=== PATIENT | female | born 1990 | race Caucasian/White ===

== ENCOUNTER 2018-08-10 21:13 | Emergency (ER) | payer OTHER ==
[2018-08-10 21:18] VITALS: TEMP 98; BMI 26.7
--- NOTE | 2018-08-10 22:05 | PDOC ---
History of Present Illness - General History Source: Patient Exam Limitations: No Limitations - History of Present Illness Initial Comments: 08/10/18 22:50 The patient is a 27-year-old female with past medical history significant for eczema and seasonal allergies present to the emergency department with chest tightness for the past 3 days. The patient reports a history of intermittent chest tightness for months, with occasional episodes. The patient reports for the past 3 days, shes been having frequent sporadic episodes with duration ranging from 30 minutes to 3 hours. The patient reports the tightness is diffused across the anterior chest wall, with occasional episodes to the epigastric region. The patient denies any modifying factors that improve or aggravates the symptoms. The patient states todays episode last longer than the prior episode, accompanied with palpitations, wanted to be evaluated. The patient reports following up at the urgent care, where she had an EKG done. The patient states she was informed that the EKG was normal but secondary to the Depo Provera use, she was referred to the ED for possible PE evaluation. The patient states she has shortness of breath with ambulation up the stairs, gale SOB with walking. The patient reports she is eating and drinking normally. Denies shortness of breath, headache, fever, chills, coughing, pain, congestion , leg swelling. Gale history of clots. The patient reports a recent weight gain , states its secondary to lack of exercise. Allergies: NKA Social history: No past or present tobacco, alcohol or recreational drug use. Surgical history: None reported Medication: Depo Provera use for the past 3 months. PCP: None reported <Marion Alvarado - Last Filed: 08/10/18 23:22> <Gabby Wyatt - Last Filed: 08/10/18 23:47> - General Chief Complaint: Shortness of Breath Stated Complaint: CHEST PRESSURE Time Seen by Provider: 08/10/18 21:28 Past History <Marion Alvarado - Last Filed: 08/10/18 23:22> - Past Medical History COPD: No - Suicide/Smoking/Psychosocial Hx Smoking History: Never smoked Number of Cigarettes Smoked Daily: 0 Hx Alcohol Use: No <Gabby Wyatt - Last Filed: 08/10/18 23:47> - Past Medical History Allergies/Adverse Reactions: Allergies Allergy/AdvReac Type Severity Reaction Status Date / Time No Known Allergies Allergy Verified 08/10/18 21:19 Home Medications: Ambulatory Orders No Home Medications 0 dose .ROUTE UTDICT 04/07/14 Review of Systems - Review of Systems Able to Perform ROS?: Yes Comments:: 08/10/18 22:51 GENERAL/CONSTITUTIONAL: No fever or chills. No weakness. HEAD, EYES, EARS, NOSE AND THROAT: No change in vision. No ear pain or discharge. No sore throat. CARDIOVASCULAR: (+) Chest tightness, palpitation. (+) Shortness of breath with walking up stairs. No chest pain or shortness of breath. RESPIRATORY: No cough, wheezing, or hemoptysis. GASTROINTESTINAL: No nausea, vomiting, diarrhea or constipation. GENITOURINARY: No dysuria, frequency, or change in urination. MUSCULOSKELETAL: No joint or muscle swelling or pain. No neck or back pain. SKIN: No rash NEUROLOGIC: No headache, vertigo, loss of consciousness, or change in strength/ sensation. ENDOCRINE: No increased thirst. No abnormal weight change. HEMATOLOGIC/LYMPHATIC: No anemia, easy bleeding, or history of blood clots. ALLERGIC/IMMUNOLOGIC: No hives or skin allergy. <Marion Alvarado - Last Filed: 08/10/18 23:22> *Physical Exam - Vital Signs Last Vital Signs Temp Pulse Resp BP Pulse Ox 98 F 88 18 145/91 99 08/10/18 21:15 08/10/18 21:15 08/10/18 21:15 08/10/18 21:15 08/10/18 21:15 - Physical Exam Comments: 08/10/18 23:22 GENERAL: Awake, alert, and fully oriented, in no acute distress HEAD: No signs of trauma EYES: PERRLA, EOMI, sclera anicteric, conjunctiva clear ENT: Auricles normal inspection, hearing grossly normal, nares patent, oropharynx clear without exudates. (+) dry mucous membranes. NECK: Normal ROM, supple, no lymphadenopathy, JVD, or masses LUNGS: Breath sounds equal, clear to auscultation bilaterally. No wheezes, and no crackles HEART: Regular rate and rhythm, normal S1 and S2, no murmurs, rubs or gallops ABDOMEN: Soft, nontender, normoactive bowel sounds. No guarding, no rebound. No masses EXTREMITIES: Normal range of motion, no edema. No clubbing or cyanosis. No cords, erythema, or tenderness NEUROLOGICAL: Cranial nerves II through XII grossly intact. Normal speech, normal gait SKIN: Warm, Dry, normal turgor, no rashes or lesions noted. <Marion Alvarado - Last Filed: 08/10/18 23:22> - Vital Signs Last Vital Signs Temp Pulse Resp BP Pulse Ox 98 F 88 18 145/91 99 08/10/18 21:15 08/10/18 21:15 08/10/18 21:15 08/10/18 21:15 08/10/18 21:15 <Gabby Wyatt - Last Filed: 08/10/18 23:47> ED Treatment Course - LABORATORY CBC & Chemistry Diagram: 08/10/18 22:35 08/10/18 22:35 <Marion Alvarado - Last Filed: 08/10/18 23:22> - LABORATORY CBC & Chemistry Diagram: 08/10/18 22:35 08/10/18 22:35 <Gabby Wyatt - Last Filed: 08/10/18 23:47> Medical Decision Making - Medical Decision Making Pt with SOB for a year, has been bothering her daily for the past 3 days, currently asymptomatic. Low risk for PE by clinical eval, D-dimer negative. CE also negative. Exam wnl. Stable for DC home. <Gabby Wyatt - Last Filed: 08/10/18 23:47> *DC/Admit/Observation/Transfer - Attestations Scribe Attestion: 08/10/18 23:23 Documentation prepared by Marion Alvarado, acting as biomedical scientist for Gabby Wyatt MD. <Marion Alvarado - Last Filed: 08/10/18 23:22> - Discharge Dispostion Decision to Admit order: No <Gabby Wyatt - Last Filed: 08/10/18 23:47> Diagnosis at time of Disposition: Shortness of breath - Discharge Dispostion Disposition: HOME Condition at time of disposition: Stable - Referrals Referrals: Víctor Guerrero MD [Staff Physician] - - Patient Instructions Printed Discharge Instructions: DI for Shortness of Breath
[2018-08-10] MEDS ORDERED: SODIUM CHLORIDE 1,000 ML IV STA (22:06)
[2018-08-10 22:45] LABS: BASO % 0.9 % (0-2.0); EOS % 1.7 % (0-4.5); HEMATOCRIT 38.7 % (32.4-45.2); HEMOGLOBIN 12.9 GM/dL (10.7-15.3); LYMPH % 39.4 % (8-40); MCH 27.6 pg (25.7-33.7); MCHC 33.2 g/dl (32.0-36.0); MEAN PLT VOLUME 7.3 fl (7.5-11.1); MONO % 9.1 % (3.8-10.2); NEUT % 48.9 % (42.8-82.8); PLATELET COUNT 276 K/MM3 (134-434); RBC 4.66 M/mm3 (3.60-5.2); RDW 13.2 % (11.6-15.6); WHITE BLOOD COUNT 6.2 K/mm3 (4.0-10.0)
[2018-08-10 23:18] LABS: ALBUMIN 3.8 g/dl (3.4-5.0); ALK PHOS 54 U/L (45-117); ANION GAP 8 MMOL/L (8-16); BILIRUBIN,TOTAL 0.3 mg/dL (0.2-1); BLOOD UREA NITROGEN 10 mg/dL (7-18); CALCIUM 8.7 mg/dL (8.5-10.1); CHLORIDE 106 mmol/L (98-107); CO2 25 mmol/L (21-32); CREATININE 0.7 mg/dL (0.55-1.3); GLUCOSE,RANDOM 106 mg/dL (74-106); POTASSIUM 3.9 mmol/L (3.5-5.1); SGOT/AST 15 U/L (15-37); SGPT/ALT 15 U/L (13-61); SODIUM 139 mmol/L (136-145); TOT PROT 7.3 g/dl (6.4-8.2)
[2018-08-10 23:39] VITALS: BP 138/84; PULSE 83
--- NOTE | 2018-08-11 15:34 | EKG ---
Test Reason : Blood Pressure : / mmHG Vent. Rate : 071 BPM Atrial Rate : 071 BPM P-R Int : 128 ms QRS Dur : 092 ms QT Int : 396 ms P-R-T Axes : 053 018 080 degrees QTc Int : 430 ms NORMAL SINUS RHYTHM INCOMPLETE RIGHT BUNDLE BRANCH BLOCK NONSPECIFIC T WAVE ABNORMALITY ABNORMAL ECG NO PREVIOUS ECGS AVAILABLE Confirmed by MD Nba, Jayy ([id number]) on 08/11/2018 3:33:59 PM Referred By: Confirmed By:Jayy Arango MD
== END 2018-08-10 23:47 | disposition home or self-care (01) ==
LOC: JER 21:13
PROC: 3E0337Z Introduction of Electrolytic and Water Balance Substance into Peripheral Vein, Percutaneous Approach (ICD-10-PCS; principal; 2018-08-10)
DX: R06.02 Shortness of breath (principal)
CPT/HCPCS: 36415; 80053; 82550; 84443; 84484; 84703; 85025; 85379; 93005; 93010; 99284-25; J7030

== ENCOUNTER 2018-08-16 14:35 | Emergency (ER) | payer OTHER ==
[2018-08-16 14:48] VITALS: BMI 26.7
--- NOTE | 2018-08-16 16:42 | PDOC ---
History of Present Illness - General Chief Complaint: Chest Pain Stated Complaint: SEND BY PCP Time Seen by Provider: 08/16/18 15:45 History Source: Patient Exam Limitations: No Limitations - History of Present Illness Initial Comments: 08/16/18 16:47 27-year-old female with no past medical history presents to ED with complaints of intermittent midsternal chest dullness above the epigastric region of the past week and a half without shortness of breath, palpitations, dizziness, weakness, sweating, or back pain. Patient states pain comes and goes lasting only minutes and has no associated symptoms. Patient denies aggravating factors or alleviating factors patient was seen here about one week ago and was told to follow up with the PCP whom she saw today and sent back to the ER for further workup including to rule out PE. Presenting Symptoms: Chest Pain Timing/Duration: reports: intermittent Severity/Quality: reports: mild, dull Location: reports: substernal (mid) Chest Pain Radiation: reports: no radiation Activities at Onset: reports: none Prior Chest Pain/Cardiac Workup: reports: No prior chest pain Modifying Factors: improves with: other (none) Nitro Today/Relief: Yes: no nitro taken today Aspirin Received prior to arrival (Core Measure): Yes: no aspirin today Beta Taryn indicated at this time? (Core Measure): No Associated Symptoms: Yes: Chest Pain/pressure (sternal dullness) Past History - Travel Traveled outside of the country in the last 30 days: No - Past Medical History Allergies/Adverse Reactions: Allergies Allergy/AdvReac Type Severity Reaction Status Date / Time No Known Allergies Allergy Verified 08/16/18 14:43 Home Medications: Ambulatory Orders No Home Medications 0 dose .ROUTE UTDICT 04/07/14 COPD: No DVT: No Dementia: No - Suicide/Smoking/Psychosocial Hx Smoking History: Never smoked Number of Cigarettes Smoked Daily: 0 Information on smoking cessation initiated: No Hx Alcohol Use: No Drug/Substance Use Hx: No Substance Use Type: None Patient Lives Alone: No Lives with/in: parents Review of Systems - Review of Systems Able to Perform ROS?: Yes Constitutional: No: Symptoms Reported HEENTM: No: Symptoms Reported Respiratory: No: Symptoms reported Cardiac (ROS): Yes: Chest Pain ABD/GI: No: Symptoms Reported : No: Symptoms Reported Musculoskeletal: No: Symptoms Reported Integumentary: No: Symptoms Reported Neurological: No: Symptoms reported Psychiatric: No: Anxiety, Stressors Endocrine: No: Symptoms Reported Hematologic/Lymphatic: No: Symptoms Reported *Physical Exam - Vital Signs Last Vital Signs Temp Pulse Resp BP Pulse Ox 99.1 F 75 18 122/80 99 08/16/18 14:45 08/16/18 14:45 08/16/18 14:45 08/16/18 14:45 08/16/18 14:45 - Physical Exam General Appearance: Yes: Nourished, Appropriately Dressed. No: Apparent Distress HEENT: positive: Pharynx Normal. negative: Pale Conjunctivae Neck: positive: Normal Thyroid, Supple Respiratory/Chest: positive: Lungs Clear, Normal Breath Sounds. negative: Chest Tender, Respiratory Distress, Accessory Muscle Use Cardiovascular: positive: Regular Rhythm, Regular Rate. negative: Murmur Gastrointestinal/Abdominal: positive: Soft. negative: Tenderness Extremity: positive: Normal Capillary Refill. negative: Pedal Edema Integumentary: positive: Normal Color, Warm, Moist Neurologic: positive: Motor Strength 5/5 (ambulatory). negative: Normal Mood/ Affect (flat affect) Heart Score/ECG Review - ECG Intrepretation Rhythm: Regular Rhythm (nsr at 67. No st elevation/ depression/ and intervals are regular) ED Treatment Course - LABORATORY CBC & Chemistry Diagram: 08/16/18 16:30 08/16/18 16:30 - ADDITIONAL ORDERS Additional order review: Laboratory Results 08/16/18 08/16/18 08/16/18 16:30 16:30 16:30 D-Dimer < 214 Sodium 138 Potassium 3.6 Chloride 105 Carbon Dioxide 25 Anion Gap 8 BUN 12 Creatinine 0.6 Creat Clearance w eGFR > 60 Random Glucose 102 Calcium 8.7 Magnesium 2.0 Total Bilirubin 0.4 AST 17 ALT 15 Alkaline Phosphatase 57 Creatine Kinase 78 Troponin I < 0.02 Total Protein 7.4 Albumin 3.8 TSH Resin T3 Uptake Urine Color Straw Urine Appearance Clear Urine pH 6.0 Ur Specific Leo 1.006 Urine Protein Negative Urine Glucose (UA) Negative Urine Ketones Negative Urine Blood Negative Urine Nitrite Negative Urine Bilirubin Negative Urine Urobilinogen Negative Ur Leukocyte Esterase Negative Urine HCG, Qual Negative 08/16/18 16:30 D-Dimer Sodium Potassium Chloride Carbon Dioxide Anion Gap BUN Creatinine Creat Clearance w eGFR Random Glucose Calcium Magnesium Total Bilirubin AST ALT Alkaline Phosphatase Creatine Kinase Troponin I Total Protein Albumin TSH 2.02 Resin T3 Uptake 32.6 Urine Color Urine Appearance Urine pH Ur Specific Leo Urine Protein Urine Glucose (UA) Urine Ketones Urine Blood Urine Nitrite Urine Bilirubin Urine Urobilinogen Ur Leukocyte Esterase Urine HCG, Qual 08/16/18 16:30 RBC 4.74 MCV 82.1 MCHC 33.2 RDW 13.3 MPV 7.3 L Neutrophils % 68.9 D Lymphocytes % 21.7 D Monocytes % 7.1 Eosinophils % 1.5 Basophils % 0.8 - RADIOLOGY Radiology Studies Ordered: Category Date Time Status CHEST PA & LAT [RAD] Stat Radiology 08/16/18 16:12 Taken Medical Decision Making - Medical Decision Making 08/16/18 16:47 Patient with complaints of intermittent lower midsternal chest dullness for the past week and a half without alleviating or aggravating factors. Patient was here last week had a workup including d-dimer and had a noted TSH of 3.8. Patient was seen by her PCP today who recommended further workup including additional labs and imaging. I have ordered labs, EKG, chest x-ray urine along with a d-dimer and T4 T3 and TSH level. Patient was unable to be ruled out utilizing the PERC rule since she is currently has a depo implant 08/16/18 17:50 Laboratory Tests 08/16/18 08/16/18 08/16/18 16:30 16:30 16:30 WBC 7.1 Hgb 12.9 Hct 39.0 Absolute Neuts (auto) 4.9 D-Dimer Sodium Potassium Chloride Carbon Dioxide Anion Gap BUN Creatinine Random Glucose Calcium Magnesium Total Bilirubin AST ALT Alkaline Phosphatase Creatine Kinase Troponin I TSH 2.02 Resin T3 Uptake 32.6 Urine Ketones Negative Urine Nitrite Negative Ur Leukocyte Esterase Negative Urine HCG, Qual Negative 08/16/18 08/16/18 16:30 16:30 WBC Hgb Hct Absolute Neuts (auto) D-Dimer < 214 Sodium 138 Potassium 3.6 Chloride 105 Carbon Dioxide 25 Anion Gap 8 BUN 12 Creatinine 0.6 Random Glucose 102 Calcium 8.7 Magnesium 2.0 Total Bilirubin 0.4 AST 17 ALT 15 Alkaline Phosphatase 57 Creatine Kinase 78 Troponin I < 0.02 TSH Resin T3 Uptake Urine Ketones Urine Nitrite Ur Leukocyte Esterase Urine HCG, Qual 08/16/18 18:52 Chest x-ray essentially negative. Call placed to Dr. Androni to discuss the case *DC/Admit/Observation/Transfer Diagnosis at time of Disposition: Chest pain, midsternal - Discharge Dispostion Disposition: HOME Condition at time of disposition: Good - Referrals Referrals: Danika Honeycutt [Primary Care Provider] - - Patient Instructions Printed Discharge Instructions: DI for Atypical Chest Pain Additional Instructions: At this time your labs, imaging, and EKG were negative. Please bring copy of your results with you to your primary care physician whom I spoke with today in regards to your visit. - Post Discharge Activity
[2018-08-16 16:47] LABS: BASO % 0.8 % (0-2.0); EOS % 1.5 % (0-4.5); HEMOGLOBIN 12.9 GM/dL (10.7-15.3); LYMPH % 21.7 % (8-40); MCH 27.3 pg (25.7-33.7); MCHC 33.2 g/dl (32.0-36.0); MEAN CELL VOLUME 82.1 fl (80-96); MEAN PLT VOLUME 7.3 fl (7.5-11.1); MONO % 7.1 % (3.8-10.2); NEUT % 68.9 % (42.8-82.8); PLATELET COUNT 268 K/MM3 (134-434); RBC 4.74 M/mm3 (3.60-5.2); RDW 13.3 % (11.6-15.6); WHITE BLOOD COUNT 7.1 K/mm3 (4.0-10.0)
[2018-08-16 16:59] LABS: URINE APPEARANCE CLEAR; URINE BILIRUBIN NEGATIVE (<2.0 mg/dL); URINE COLOR STRAW; URINE GLUCOSE (UA) NEGATIVE (NEGATIVE); URINE KETONE NEGATIVE (NEGATIVE); URINE LEUK ESTERASE NEGATIVE (NEGATIVE); URINE NITRITE NEGATIVE (NEGATIVE); URINE PROTEIN NEGATIVE (NEGATIVE); URINE UROBILINOGEN NEGATIVE mg/dL (0.2-1.0)
[2018-08-16 17:03] LABS: HCG,QUALITATIVE URINE Negative
[2018-08-16 17:23] LABS: ALBUMIN 3.8 g/dl (3.4-5.0); ALK PHOS 57 U/L (45-117); ANION GAP 8 MMOL/L (8-16); BILIRUBIN,TOTAL 0.4 mg/dL (0.2-1); BLOOD UREA NITROGEN 12 mg/dL (7-18); CALCIUM 8.7 mg/dL (8.5-10.1); CHLORIDE 105 mmol/L (98-107); CO2 25 mmol/L (21-32); CREATININE 0.6 mg/dL (0.55-1.3); GLUCOSE,RANDOM 102 mg/dL (74-106); POTASSIUM 3.6 mmol/L (3.5-5.1); SGOT/AST 17 U/L (15-37); SGPT/ALT 15 U/L (13-61); SODIUM 138 mmol/L (136-145); TOT PROT 7.4 g/dl (6.4-8.2)
[2018-08-16 19:04] VITALS: BP 124/88; PULSE 71; TEMP 98.2
--- NOTE | 2018-08-17 11:26 | EKG ---
Test Reason : Blood Pressure : / mmHG Vent. Rate : 067 BPM Atrial Rate : 067 BPM P-R Int : 124 ms QRS Dur : 084 ms QT Int : 386 ms P-R-T Axes : 060 010 075 degrees QTc Int : 407 ms NORMAL SINUS RHYTHM NORMAL ECG WHEN COMPARED WITH ECG OF 10-AUG-2018 21:29, NONSPECIFIC T WAVE ABNORMALITY NO LONGER EVIDENT IN ANTERIOR LEADS Confirmed by VIRIDIANA MONTERO, KATE ([id number]) on 08/17/2018 11:26:38 AM Referred By: Confirmed By:KATE KEMP MD
== END 2018-08-16 19:09 | disposition home or self-care (01) ==
LOC: JER 14:35
DX: R07.89 Other chest pain (principal)
CPT/HCPCS: 36415; 71046-TC-FY; 80053; 81003; 82550; 83735; 84436; 84439; 84443; 84479; 84484; 84703; 85025; 85379; 93005; 93010; 99283-25

== ENCOUNTER 2020-01-05 11:43 | Emergency (ER) | payer OTHER ==
[2020-01-05 11:47] VITALS: BP 127/80; PULSE 73; TEMP 97.2; BMI 29.2
--- NOTE | 2020-01-05 12:30 | PDOC ---
History of Present Illness - General Chief Complaint: Vaginal Bleeding Stated Complaint: VAGINAL BLEEDING Time Seen by Provider: 01/05/20 12:17 - History of Present Illness Initial Comments: 01/05/20 12:28 29 y/o F A1, 7 weeks with no significant PMH except for allergic rhinitis presents to the ED for vaginal bleeding. Pt was having intercourse with her partner when she started bleeding. The blood was about a teaspoon on the bed and continued as spots on pads. The bleeding is associated with intermittent sharp lower abdominal pain rating 7/10. No other associated symptoms such as F/C/N/V/D. No history of bleeding or clotting disorder nor family with first trimester abortions. LMP 11/12/19 PSH: laser eye surgery and eye muscle repair Social: none PE: Gen: NAD PELVIC: no external bleeding, no pain on speculum insertion, OS is closed, no pooled blood in posterior fornix HEENT: PERRLA, moist membranes, conjunctival clear NECK: no JVD CHEST: vesicular breath sounds b/l HEART: RRR no murmur, rubs or gallop Abdomen: +BS, NT, mildly Distended( 7 weeks ) MSK: normal ROM, no joint pain neuro: AAOx3, motor strength 5/5, sensation intact throughout extremities: no edema Assessment: based on HPI and PE, DDX include: vaginal laceration vs physiologic bleeding vs missed vs incomplete 01/05/20 12:39 Plan: CBC, CMP, serum BHCG, type and screen, UA, transvaginal US 01/05/20 13:04 CBC WBC 8.1 K/mm3 (4.0-10.0) 01/05/20 12:31 RBC 4.42 M/mm3 (3.60-5.2) 01/05/20 12:31 Hgb 12.4 GM/dL (10.7-15.3) 01/05/20 12:31 Hct 36.8 % (32.4-45.2) 01/05/20 12:31 MCV 83.3 fl (80-96) 01/05/20 12:31 MCH 28.2 pg (25.7-33.7) 01/05/20 12:31 MCHC 33.8 g/dl (32.0-36.0) 01/05/20 12:31 RDW 13.4 % (11.6-15.6) 01/05/20 12:31 Plt Count 284 K/MM3 (134-434) 01/05/20 12:31 MPV 7.5 fl (7.5-11.1) 01/05/20 12:31 Absolute Neuts (auto) 5.8 K/mm3 (1.5-8.0) 01/05/20 12:31 Neutrophils % 71.2 % (42.8-82.8) 01/05/20 12:31 Lymphocytes % 19.6 % (8-40) 01/05/20 12:31 Monocytes % 6.4 % (3.8-10.2) 01/05/20 12: Eosinophils % 1.8 % (0-4.5) 01/05/20 12: Basophils % 1.0 % (0-2.0) 01/05/20 12:31 Nucleated RBC % 0 % (0-0) 01/05/20 12:31 unremarkable 01/05/20 13:31 CMP Sodium 137 mmol/L (136-145) 01/05/20 12:31 Potassium 3.7 mmol/L (3.5-5.1) 01/05/20 12:31 Chloride 106 mmol/L (98-107) 01/05/20 12:31 Carbon Dioxide 25 mmol/L (21-32) 01/05/20 12:31 Anion Gap 7 MMOL/L (8-16) L 01/05/20 12:31 BUN 7.4 mg/dL (7-18) 01/05/20 12:31 Creatinine 0.5 mg/dL (0.55-1.3) L 01/05/20 12:31 Est GFR (CKD-EPI)AfAm 152.65 01/05/20 12:31 Est GFR (CKD-EPI)NonAf 131.71 01/05/20 12:31 Random Glucose 101 mg/dL (74-106) 01/05/20 12:31 Calcium 9.1 mg/dL (8.5-10.1) 01/05/20 12:31 Total Bilirubin 0.4 mg/dL (0.2-1) 01/05/20 12:31 AST 14 U/L (15-37) L 01/05/20 12:31 ALT 17 U/L (13-61) 01/05/20 12:31 Alkaline Phosphatase 39 U/L (45-117) L 01/05/20 12:31 Total Protein 7.1 g/dl (6.4-8.2) 01/05/20 12:31 Albumin 3.7 g/dl (3.4-5.0) 01/05/20 12:31 unremarkable BHCG pending 01/05/20 13:41 transvaginal US: The exam demonstrates a single viable intrauterine gestation at approximately 8 weeks 0 days (crown -rump length 1.6 cm). Embryonic cardiac rate 156 BPM. No subchorionic implantation bleed is seen. There is no obvious uterine pathology. No free intraperitoneal fluid is noted. A 1.6 cm right ovarian follicle/cyst is seen without intraluminal debris/blood. No Doppler evidence of right ovarian torsion, sensitivity 70%. The left ovary could not be definitely visualized possibly due to obscuring bowel gas. BHCG and type and screen still pending 01/05/20 13:45 type and screen O positive. no Rhogam BHCG 12248.1 01/05/20 13:46 based on test result and imaging, bleeding least likely associated with threatening or incomplete but more likely physiologic or from mild vaginal abrasion. Will discharge pt with close f/u with her Ob and to return to the ED if bleeding continues or worsens, severe abdominal pain. pending UA 01/05/20 14:32 Past History - Past Medical History Allergies/Adverse Reactions: Allergies Allergy/AdvReac Type Severity Reaction Status Date / Time No Known Allergies Allergy Verified 01/05/20 11:47 Home Medications: Ambulatory Orders No Home Medications 0 dose .ROUTE UTDICT 04/07/14 COPD: No DVT: No Dementia: No - Psycho Social/Smoking Cessation Hx Smoking History: Never smoked Number of Cigarettes Smoked Daily: 0 Hx Alcohol Use: No Drug/Substance Use Hx: No Substance Use Type: None Review of Systems - Review of Systems Able to Perform ROS?: Yes Is the patient limited Georgian proficient: No Constitutional: Yes: Weight Stable. No: Fever, Malaise HEENTM: No: Recent change in vision Respiratory: No: Cough, Shortness of Breath Cardiac (ROS): No: Chest Pain, Lightheadedness, Palpitations ABD/GI: Yes: Abdominal Distended, Nausea. No: Constipated, Diarrhea, Poor Appetite : No: Burning, Dysuria, Discharge Musculoskeletal: No: Joint Pain, Joint Swelling, Muscle Pain Integumentary: No: Change in Color Neurological: No: Headache Psychiatric: No: Change in Appetite Endocrine: No: Change in Weight Hematologic/Lymphatic: No: Easy Bleeding, Easy Bruising *Physical Exam - Vital Signs Last Vital Signs Temp Pulse Resp BP Pulse Ox 97.2 F L 73 18 127/80 100 01/05/20 11:45 01/05/20 11:45 01/05/20 11:45 01/05/20 11:45 01/05/20 11:45 - Physical Exam General Appearance: Yes: Appropriately Dressed. No: Apparent Distress HEENT: positive: KITTY Neck: positive: Supple Respiratory/Chest: positive: Lungs Clear, Normal Breath Sounds Cardiovascular: positive: Regular Rate, S1, S2. negative: Murmur Female Pelvic Exam: positive: cervical os closed, discharge, vaginal bleeding. negative: adnexal tenderness Gastrointestinal/Abdominal: positive: Normal Bowel Sounds, Distended. negative : Tenderness Rectal Exam: positive: deferred Musculoskeletal: positive: Normal Inspection. negative: CVA Tenderness Extremity: positive: Normal Capillary Refill Integumentary: positive: Normal Color, Dry, Warm Neurologic: positive: desk officer II-XII NML intact, Fully Oriented, Alert, Normal Mood/ Affect, Normal Response, Motor Strength 5/5. negative: Sensory Deficit ED Treatment Course - LABORATORY CBC & Chemistry Diagram: 01/05/20 12:31 01/05/20 12:31 Discharge - Discharge Information Problems reviewed: Yes Clinical Impression/Diagnosis: Vaginal bleeding during , antepartum Condition: Improved Disposition: HOME - Admission No - Follow up/Referral Referrals: Shanda Lambert [Primary Care Provider] - - Patient Discharge Instructions Patient Printed Discharge Instructions: DI for Vaginal Bleeding During , Vaginal Bleeding During , DI for Threatened Additional Instructions: You came because of vaginal bleeding while . we performed labs and imaging with normal findings. You are stable enough to be discharged home. It is safe to have intercourse during , however do so carefully. Please reach out to your Obstetrics upon discharge. Were your symptoms to persist, worsened, associated with overt bleeding or severe abdominal pain, please return to the Emergency room immediately - Post Discharge Activity
[2020-01-05 12:49] LABS: EOS % 1.8 % (0-4.5); HEMATOCRIT 36.8 % (32.4-45.2); HEMOGLOBIN 12.4 GM/dL (10.7-15.3); LYMPH % 19.6 % (8-40); MCH 28.2 pg (25.7-33.7); MCHC 33.8 g/dl (32.0-36.0); MEAN CELL VOLUME 83.3 fl (80-96); MEAN PLT VOLUME 7.5 fl (7.5-11.1); MONO % 6.4 % (3.8-10.2); NEUT % 71.2 % (42.8-82.8); PLATELET COUNT 284 K/MM3 (134-434); RBC 4.42 M/mm3 (3.60-5.2); RDW 13.4 % (11.6-15.6); WHITE BLOOD COUNT 8.1 K/mm3 (4.0-10.0)
[2020-01-05 13:22] LABS: ALBUMIN 3.7 g/dl (3.4-5.0); BILIRUBIN,TOTAL 0.4 mg/dL (0.2-1); BLOOD UREA NITROGEN 7.4 mg/dL (7-18); CALCIUM 9.1 mg/dL (8.5-10.1); CREATININE 0.5 mg/dL (0.55-1.3); POTASSIUM 3.7 mmol/L (3.5-5.1); TOT PROT 7.1 g/dl (6.4-8.2)
--- NOTE | 2020-01-05 14:54 | PDOC ---
Documentation entered by Payal Arredondo SCRIBE, acting as scribe for Gabby Wyatt MD. Gabby Wyatt MD: This documentation has been prepared by the Maria Elena chaidez Nirvannie, SCRIBE, under my direction and personally reviewed by me in its entirety. I confirm that the documentation accurately reflects all work, treatment, procedures, and medical decision making performed by me. Attending Attestation - Resident Resident Name: Radha Winston - ED Attending Attestation I have performed the following: I have examined & evaluated the patient, The case was reviewed & discussed with the resident, I agree w/resident's findings & plan, Exceptions are as noted - HPI HPI: 01/05/20 13:02 The patient is a 29 year old female A1, with no significant past medical history, who presents to the emergency department with 1 day of vaginal bleeding. As per patient, she was having sexual intercourse with her partner at which time she began to experience vaginal bleeding quantified as the size of a teaspoon, prompting her arrival to the ED. Allergies: NKDA Primary Care Physician: Dr. Lambert,Xhevat LMP: 11/12/19 - Physicial Exam PE: GENERAL: Awake, alert, and fully oriented, in no acute distress HEAD: No signs of trauma EYES: PERRLA, EOMI, sclera anicteric, conjunctiva clear ENT: Auricles normal inspection, hearing grossly normal, nares patent, oropharynx clear without exudates. Moist mucosa NECK: Normal ROM, supple, no lymphadenopathy, JVD, or masses LUNGS: Breath sounds equal, clear to auscultation bilaterally. No wheezes, and no crackles HEART: Regular rate and rhythm, normal S1 and S2, no murmurs, rubs or gallops ABDOMEN: Soft, nontender, normoactive bowel sounds. No guarding, no rebound. No masses EXTREMITIES: Normal range of motion, no edema. No clubbing or cyanosis. No cords, erythema, or tenderness NEUROLOGICAL: Cranial nerves II through XII grossly intact. Normal speech, normal gait. Motor and sensation intact SKIN: Warm, dry, normal turgor, no rashes or lesions noted. - Medical Decision Making Sono shows viable IUP, +FHR 156 bpm. Rh+. Will obtain UA, then DC home.
[2020-01-05 15:22] LABS: PH,URINE 7.5 (5.0-8.0); URINE APPEARANCE CLEAR; URINE BILIRUBIN NEGATIVE (NEGATIVE); URINE COLOR YELLOW; URINE GLUCOSE (UA) NEGATIVE (NEGATIVE); URINE KETONE NEGATIVE (NEGATIVE); URINE LEUK ESTERASE NEGATIVE (NEGATIVE); URINE NITRITE NEGATIVE (NEGATIVE); URINE PROTEIN NEGATIVE (NEGATIVE); URINE UROBILINOGEN 0.2 mg/dL (0.2-1.0)
== END 2020-01-05 15:53 | disposition home or self-care (01) ==
LOC: JER 11:43
DX: O26.891 Other specified pregnancy related conditions, first trimester (principal); O20.8 Other hemorrhage in early pregnancy; O34.81 Maternal care for other abnormalities of pelvic organs, first trimester; N83.291 Other ovarian cyst, right side; Z3A.08 8 weeks gestation of pregnancy
CPT/HCPCS: 36415; 76817-TC; 80053; 81003; 84702; 85025; 86850; 86900; 86901; 87086; 99284-25

== ENCOUNTER 2020-08-17 | Inpatient (IN) | payer OTHER ==
[2020-08-17] MEDS ORDERED: ELECTROLYTE-148 SOLN 1,000 ML IV SCH (00:30)
--- OUTSIDE RECORDS SUMMARY | 2020-08-17 00:30 | XMS ---
:[address] [facility] Support Name Relationship Address Phone [facility] Unavailable [address] [phone] [id number] [place] [address] [facility] Unavailable [address] [phone] [place] [address] FELIX ELY [address] [facility] [place] [address] LAINE DAUGHERTY FATHER [address] [facility] [address] [phone] [place] [id number] Ely Barahona Unavailable Unavailable Unavailable Re-disclosure Warning The records that you are about to access may contain information from federally- assisted alcohol or drug abuse programs. If such information is present, then the following federally mandated warning applies: This information has been disclosed to you from records protected by federal confidentiality rules (42 CFR part 2). The federal rules prohibit you from making any further disclosure of this information unless further disclosure is expressly permitted by the written consent of the person to whom it pertains or as otherwise permitted by 42 CFR part 2. A general authorization for the release of medical or other information is NOT sufficient for this purpose. The Federal rules restrict any use of the information to criminally investigate or prosecute any alcohol or drug abuse patient.The records that you are about to access may contain highly sensitive health information, the redisclosure of which is protected by Article 27-F of the [place] State Public Health law. If you continue you may haveaccess to information: Regarding HIV / AIDS; Provided by facilities licensed or operated by the [facility] Office of Mental Health; or Provided by the [facility] Office for People With Developmental Disabilities. If such information is present, then the following [facility] mandated warning applies: This information has been disclosed to you from confidential records which are protected by state law. State law prohibits you from making any further disclosure of this information without the specific written consent of the person to whom it pertains, or as otherwise permitted by law. Any unauthorized further disclosure in violation of state law may result in a fine or [place] [facility] sentence or both. A general authorization for the release of medical or other information is NOT sufficient authorization for further disclosure. Allergies and Adverse Reactions Type Description Substance Reaction Status Data Source(s ) No Information No Information No Information eC W2 ([facility]) No Known Allergies No Known Allergies No Known eCW2 ([facility] All[facility]ies [facility]) Encounters Encounter Providers Location Date Indications Data Source(s ) [facility] ( [facility] [place] [facility] 12:[facility]:00 AM [facility] - [place] EST [facility]) [facility] 12/12[facility]2019 eCW2 ( [facility] [place] [facility] 12:00:00 AM [facility] - [place] EST [facility]) [facility] 05/10/2018 eCW2 ( [facility] [place] [facility] 12:00:00 AM [facility] - [place] EDT [facility]) [facility] 04/19/2018 eCW2 ( [facility] [place] [facility] 12:00:00 AM [facility] - [place] EDT [facility]) [facility] 11/24/2017 eCW2 ( [facility] [place] [facility] 12:00:00 AM [facility] - [place] EST [facility] 09/28/2017 eCW2 ( [facility] [place] [facility] 12:00:00 AM Pa[facility] - [place] EST [facility]) [facility] 09/06/2017 eCW2 ( [facility] [place] [facility] 12:00:00 AM Pa[facility] - [place] EDT [facility]) [facility] 09/05/2017 eCW2 ( [facility] [place] [facility] 12:00:00 AM Pa[facility] - [place] EDT [facility]) [facility] 09/05/2017 eCW2 ( [facility] [place] [facility] 12:00:00 AM Pa[facility] - [place] EDT [facility]) [facility] 09/05/2017 eCW2 ( [facility] [place] [facility] 12:00:00 AM Jalil Sorenson EDT [facility]) Immunizations Vaccine Date Status Description Data Source(s) No Known Immunizations completed eCW2 ([facility]) No Known Immunizations completed eCW2 ([facility]) Medications Medication Brand Start Product Dose Route Administrative Pharmacy [facility] Indications Reaction Description Data Name Date Form Instructions Instructions Source(s) UNK 12/12/ active 1 tablet eCW 2 Vitamin 2020 (Planned 27-0.8 MG 12:00: Paren[facility] od 00 AM - [facility]) MedroxyPROG UNK suspend 1 ml eCW2 ESTERone ed (Planned Acetate 150 Pa[facility] od MG/ML - [facility]) MedroxyPROG UNK suspend 1 ml eCW2 ESTERone ed (Planned Acetate 150 [facility] od MG/ML - [facility]) Depo-Stiff Leg Operator UNK suspend eCW2 a ed ([facility]) Unknown complet eCW2 Medications ed ([facility]) Misoprostol UNK suspend 4 tablets eCW2 4 tabs 200 ed ([facility] MCG [facility]) Zofran 4 MG UNK suspend 1 tablets eCW2 ed ([facility]) Mifepriston UNK suspend 1 tablet e CW2 e 200 MG ed ([facility]) Azithromyci UNK suspend as directe d eCW2 n 500 MG ed ([facility]) Insurance Providers Payer name Policy type / Policy ID Covered Covered republican's Policy Plan Coverage type republican ID relationship to Smith 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 [id number] SP [id number] HMO 1 HIP HMO [id number] SP [id number] 1 [employer] PPO [id number] SP [id number] Problems, Conditions, and Diagnoses Code Display Name Description Problem Type Effective Dates Data Source(s) Z32.02 test Negative Problem 05/10/2018 eC W2 (Planned negative test 12:00:00 AM EDT [facility]) Surgeries/Procedures Procedure Description Date Indications Data Source(s) Test 12/12/2019 eCW2 ([facility] 12:00:00 AM [facility]) No Known procedures No Known procedures e CW2 ([facility]) Results ID Date Data Source [id number] 02/21/2020 12:00:00 AM EDT [place] Name Value Range Interpretation Code Description Data Lucero rce(s) Supporting Document(s ) [facility] XXX ISABELLA+probe- Imp [facility] nd reported by [employer]. Procedure Social History Code Duration Value Status Description Data Source(s ) Smoking Unknown if ever completed Unknown if ever eCW2 ([facility] smoked smoked [facility]) Smoking Unknown if ever completed Unknown if ever eCW2 ([facility] smoked [facility]) Vital Signs ID Date Data Source UNK Name Value Range Interpretation Code Description Data Source(s) Diastolic blood 83 mm[Hg] 83 mm[Hg] eCW2 ([facility]oraida nned pressure [facility]) Systolic blood 123 mm[Hg] 123 mm[Hg] eCW2 (Plan regi pressure [facility]) Body mass index 28.49 kg/m2 28.49 kg/m2 eCW2 (P lanned (BMI) [Ratio] [facility]) Body weight 166 [lb_av] 166 [lb_av] eCW2 (Plann ed Measured [facility]) Body height 64 [in_us] 64 [in_us] eCW2 ([facility]) Patient Treatment Plan of Care Planned Activity Planned Date Details Description Data Source (s) Vitamin 12/12/2019 12:00:00 eCW2 (Planned 27-0.8 MG AM EST [facility])
--- OUTSIDE RECORDS SUMMARY | 2020-08-17 00:35 | XMS ---
:1990 Author Organization [facility] Support Name Relationship Address Phone [facility] Unavailable [address] [phone] [id number] [place] [address] [facility] Unavailable [address] [phone] [place] [address] FELIX ELY [address] [facility] [address] [phone] [place] [address] LAINE DAUGHERTY FATHER [address] [facility] [address] [phone] [place] [id number] Ely Barahona Unavailable Unavailable Unavailable Re-disclosure Warning [...] is protected by Article 27-F of the [place] State Public Health law. If you continue you may haveaccess to information: Regarding HIV / AIDS; Provided by facilities licensed or operated by the [facility] Office of Mental Health; or Provided by the [facility] Office for People With Developmental Disabilities. If such information is present, then the following [facility] mandated warning applies: This information has been [...] law may result in a fine or skilled nursing sentence or both. A general authorization for the release of medical or other information is NOT sufficient authorization for further disclosure. Allergies and Adverse Reactions Type Description Substance Reaction Status Data Source(s ) No Information No Information No Information eC W2 ([facility]) No Known Allergies No Known Allergies No Known eCW2 ([facility]) Encounters Encounter Providers Location Date Indications Data Source(s ) [facility]2019 [facility]CW2 ( [facility] [place] [facility] 12:[facility]:00 AM Pa[facility] - [place] EST [facility]) [facility] 12/12/2019 eCW2 ( [facility] [place] [facility] 12:00:00 AM Pa[facility] - [place] EST [facility]) [facility] 05/10/2018 [facility]CW2 ( [facility] [place] [facility] 12:00:00 AM Pa[facility] - [place] EDT [facility]) [facility] 04/19/2018 eCW2 ( [facility] [place] [facility] 12:00:00 AM [facility] - [place] EDT [facility]) [facility] 11/24/2017 eCW2 ( [facility] [place] [facility] 12:00:00 AM Pa[facility] - [place] EST [facility]) [facility] 09/28/2017 eCW2 ( [facility] [place] [facility] 12:00:00 AM Pa[facility] - [place] EST [facility]) [facility] 09/06/2017 eCW2 ( [facility] [place] [facility] 12:00:00 AM Pa[facility] - [place] EDT [facility]) [facility] 09/05/2017 eCW2 ( [facility] [place] [facility] 12:00:00 AM Paren [facility] - [place] EDT [facility]) [facility] 09/05/2017 eCW2 ( [facility] [place] [facility] 12:00:00 AM Pa[facility] - [place] EDT [facility]) [facility] 09/05/2017 eCW2 ( [facility] [place] [facility] 12:00:00 AM Jalil Sorenson EDT [facility]) Immunizations Vaccine Date Status Description Data Source(s) No Known Immunizations completed eCW2 ([facility]) No Known Immunizations completed eCW2 ([facility]) Medications Medication Brand Start Product Dose Route Administrative Pharmacy [facility] Indications Reaction Description Data Name Date Form Instructions Instructions Source(s) UNK 12/12/ active 1 tablet eCW 2 Vitamin 2020 (Planned 27-0.8 MG 12:00: Pa[facility] od 00 AM - [facility] [place] [facility]) MedroxyPROG UNK suspend 1 ml eCW2 ESTERone ed (Planned Acetate 150 Parenth[facility] od MG/ML - [facility]) MedroxyPROG UNK suspend 1 ml eCW2 ESTERone ed (Planned Acetate 150 Pa[facility] od MG/ML - [facility]) Depo-Clay Mixer UNK suspend eCW2 a ed ([facility]) Unknown complet eCW2 Medications ed ([facility]) Misoprostol UNK suspend 4 tablets eCW2 4 tabs 200 ed ([facility] MCG [facility]) Zofran 4 MG UNK suspend 1 tablets eCW2 ed ([facility]) Mifepriston UNK suspend 1 tablet e CW2 e 200 MG ed ([facility]) Azithromyci UNK suspend as directe d eCW2 n 500 MG ed ([facility]) Insurance Providers Payer name Policy type / Policy ID Covered Covered alliance party's Policy Plan Coverage type alliance party ID relationship to Smith Information 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 [id number] SP [id number] HMO 1 HIP HMO [id number] SP [id number] 1 [employer] PPO [id number] SP [id number] Problems, Conditions, and Diagnoses Code Display Name Description Problem Type Effective Dates Data Source(s) Z32.02 test Negative Problem 05/10/2018 eC W2 (Planned negative test 12:00:00 AM EDT [facility]) Surgeries/Procedures Procedure Description Date Indications Data Source(s) Test 12/12/2019 eCW2 ([facility]anned 12:00:00 AM [facility] [place] [facility]) No Known procedures No Known procedures e CW2 ([facility]) Results ID Date Data Source [id number] 02/21/2020 12:00:00 AM EDT [facility] Name Value Range Interpretation Code Description Data Lucero rce(s) Supporting Document(s ) 2019-nCoV [facility] RNA XXX ISABELLA+probe- Imp This lab was ordered [facility] [place] nd reported by [employer]. Procedure Social History Code Duration Value Status Description Data Source(s ) Smoking Unknown if ever completed Unknown if ever eCW2 ([facility] smoked [facility]) Smoking Unknown if ever completed Unknown if ever eCW2 ([facility] smoked [facility]) Vital Signs ID Date Data Source UNK Name Value Range Interpretation Code Description Data Source(s) Diastolic blood 83 mm[Hg] 83 mm[Hg] eCW2 ([facility]oraida nned pressure [facility]) Systolic blood 123 mm[Hg] 123 mm[Hg] eCW2 (Plan regi pressure [facility]) Body mass index 28.49 kg/m2 28.49 kg/m2 eCW2 (P lanned (BMI) [Ratio] [facility]) Body weight 166 [lb_av] 166 [lb_av] eCW2 (Plann ed Measured [facility]) Body height 64 [in_us] 64 [in_us] eCW2 ([facility]) Patient Treatment Plan of Care Planned Activity Planned Date Details Description Data Source (s) Vitamin 12/12/2019 12:00:00 eCW2 (Planned 27-0.8 MG AM EST [facility])
[2020-08-17 00:57] LABS: BASO % 0.7 % (0-2.0); EOS % 0.6 % (0-4.5); HEMATOCRIT 36.7 % (32.4-45.2); HEMOGLOBIN 12.2 GM/dL (10.7-15.3); LYMPH % 17.4 % (8-40); MCH 27.9 pg (25.7-33.7); MCHC 33.2 g/dl (32.0-36.0); MEAN PLT VOLUME 8.6 fl (7.5-11.1); MONO % 8.5 % (3.8-10.2); NEUT % 72.8 % (42.8-82.8); PLATELET COUNT 227 K/MM3 (134-434); RBC 4.37 M/mm3 (3.60-5.2); RDW 14.7 % (11.6-15.6)
[2020-08-17 01:07] LABS: INR 0.91 (0.83-1.09); PROTHROMBIN TIME (PATIENT) 10.7 SEC (9.7-13.0)
[2020-08-17 01:10] LABS: ACTIVATED PTT 27.2 SECONDS (25.2-36.5)
[2020-08-17] MEDS ORDERED: FENTANYL/BUPIVACAINE/NS/PF - PCEA - 50 ML DISP.SYRIN EP ONE ×2 (01:24→06:07)
[2020-08-17] MEDS ORDERED: PCA PUMP NR ONE ×3 (01:25→07:54)
[2020-08-17 01:27] LABS: CREATININE 0.5 mg/dL (0.55-1.3); POTASSIUM 3.9 mmol/L (3.5-5.1)
[2020-08-17] MEDS ORDERED: BUPIVACAINE HCL/PF 0.25% (2.5MG/ML) 10 ML VIAL ONE (01:33)
[2020-08-17] MEDS ORDERED: NALOXONE HCL 0.4 MG/ML VIAL IVPUSH PRN (01:52)
[2020-08-17] MEDS ORDERED: FENTANYL/BUPIVACAINE/NS/PF - PCEA - 50 ML DISP.SYRIN EP SCH (02:00)
[2020-08-17 02:30] VITALS: BMI 33.1
[2020-08-17] MEDS ORDERED: OXYTOCIN 20 UNITS in 0.9% NS 20 UNIT/1,000 ML INFUS.BAG IV ONE ×2 (07:28→11:22)
[2020-08-17] MEDS ORDERED: OXYTOCIN 30 UNITS in 0.9% NS 30 UNIT/500 ML INFUS.BAG IVPB SCH (07:30)
[2020-08-17] MEDS ORDERED: DEXTROSE 5%-LACTATED RINGERS 1,000 ML IV SCH (07:30)
--- NOTE | 2020-08-17 07:32 | HP ---
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: No: Alzheimer's, CVA, Dementia, Migraine, Multiple Sclerosis, Peripheral Neuropathy, Parkinson's, Seizure, Syncope, TIA, Vertigo, Other Cardiovascular: No: AFIB, Aneurysm, Aortic Insufficiency, Aortic Stenosis, CAD, CHF, Deep Vein Thrombosis, HTN, Hyperlipdemia, NH, Mitral Insufficiency, Mitral Stenosis, Murmur, Pulmonary Hypertension, Other Pulmonary: No: Asthma, Bronchitis, Cancer, COPD, O2 Dependent, Pneumonia, Previously Intubated, Pulmonary Embolus, Pulmonary Fibrosis, Sleep Apnea, Other Gastrointestinal: No: Ascites, Cancer, Constipation, Crohn's Disease, Diverticulitis, Diverticulosis, Esophageal Varices, Gastritis, GERD, GI Bleed, Hemorrhoids, Hiatal Hernia, Inflamatory Bowel Disease, Irritable Bowel Disease, Pancreatitis, Peptic Ulcer Disease, Ulcerative Colitis, Other Hepatobiliary: No: Cirrhosis, Cholelithiasis, Cholecystitis, Choledocholithiasis, Hepatitis A, Hepatitis B, Hepatitis C, Other Renal/: No: Renal Failure, Renal Inusuff, BPH, Cancer, Hematuria, Hemodialysis, Neurogenic Bladder, Renal Calculi, UTI, Other Reproductive: No: Ectopic , Endometriosis, Fibroids, PID, Polycystic Ovary Syndrome, Postmenopausal, Other ...: 2 ...Para: 0 ...Term: 0 ...: 0 ...Spon : 0 ...Induced : 1 ...Living Children: 0 ...Multiple Gestation: 0 ...LMP: 11/12/19 ... Weeks Gestation by Dates: 39.6 ...EDC by Dates: 08/18/20 Heme/Onc: No: Anemia, B12 Deficiency, Bleeding Disorder, Cancer, Current Ch emotherapy, Current Radiation Therapy, Hemochromatosis, Hypercoaguable State, Myeloproliferative Synd, Sickle Cell Disease, Sickle Cell Trait, Thrombocytopenia, Other Infectious Disease: No: AIDS, C-Diff, Herpes Zoster, HIV, MRSA, STD's, Tuberculosis, VREF, Other Psych: No: Addictions, Anxiety, Bipolar, Depression, Panic, Psychosis, Schizophrenia, Other Musculoskeletal: No: Bursitis, Chronic low back pain, Hemiparesis, Hemiplegia, Osteoarthritis, Paraplegia, Other Rheumatology: No: Fibromyalgia, Gout, Lupus, Rheumatoid Arthritis, Sarcoidosis, Vasculitis, Other ENT: No: Allergic Rhinitis, Sinusitis, Other Endocrine: No: Stanislaw's Disease, Frankfort's Disease, Diabetes Insipidus, Diabetes Mellitus, Hyperparathyroidism, Hyperthyroidism, Hypothyroidism, Osteopenia, SIADH, Other Dermatology: No: Basal Cell, Cellulitis, Eczema, Melanoma, Psoriasis, Squamous Cell, Other - Past Surgical History Past Surgical History: No: None, AAA Repair, AICD, Amputation, Appendectomy, Arthrosocopy, AV Fistula/Graft, Bariatric Surgery, Breast Biopsy, Bypass, CABG, Carotid Endarterectomy, Cataract Removal, Cholecystectomy, Colectomy, Colonoscopy, Colostomy, Craniotomy, , Cystectomy, Hernia Repair, Hysterectomy, Ileal Conduit, Ileosotomy, Joint Replacement, Kidney Transplant, Laminectomy, Liver Transplant, Mastectomy, Nephrectomy, Oopherectomy, Orchiectomy, Permanent Pacemaker, Prostatectomy, Splenectomy, Stent, Thoracotomy, TURP, Tonsillectomy, Tubal Ligation, Upper Endoscopy, Valve Replacement, Vasectomy, Vein Stripping/Ligation Hx Myomectomy: No Hx Transabdominal Cerclage: No - Advance Directives Advance Directives: Yes: Living Will - Smoking History Smoking history: Never smoked Have you smoked in the past 12 months: No Aproximately how many cigarettes per day: 0 - Alcohol/Substance Use Hx Alcohol Use: No History of Substance Use: reports: None - Social History Usual Living Arrangement: Yes: With Significant Other Do you think of yourself as: Straight/Heterosexual ADL: Independent History of Recent Travel: No Home Medications - Allergies Allergies/Adverse Reactions: Allergies Allergy/AdvReac Type Severity Reaction Status Date / Time No Known Allergies Allergy Verified 01/05/20 11:47 - Home Medications Home Medications: Ambulatory Orders Ferrous Sulfate [Iron] 1 tab PO DAILY 08/17/20 Pnv 29-1 Tablet 1 tab PO DAILY 08/17/20 Family Medical History Family History: Denies Review of Systems - Review of Systems Constitutional: reports: No Symptoms Eyes: reports: No Symptoms HENT: reports: No Symptoms Neck: reports: No Symptoms Cardiovascular: reports: No Symptoms Respiratory: reports: No Symptoms Gastrointestinal: reports: No Symptoms Genitourinary: reports: No Symptoms Breasts: reports: No Symptoms Reported Musculoskeletal: reports: No Symptoms Integumentary: reports: No Symptoms Neurological: reports: No Symptoms Endocrine: reports: No Symptoms Hematology/Lymphatic: reports: No Symptoms Psychiatric: reports: No Symptoms Physical Exam - Maternity Vital Signs: Vital Signs Temperature 98.0 F 08/17/20 06:00 Pulse Rate 70 08/17/20 06:45 Respiratory Rate 20 08/17/20 06:45 Blood Pressure 91/58 L 08/17/20 06:45 O2 Sat by Pulse Oximetry (%) 97 08/17/20 06:45 Constitutional: Yes: Well Nourished, No Distress, Calm Eyes: Yes: WNL, Conjunctiva Clear, EOM Intact HENT: Yes: WNL, Atraumatic, Normocephalic Neck: Yes: WNL, Supple, Trachea Midline Cardiovascular: Yes: WNL, Regular Rate and Rhythm Lungs: Clear to auscultation Breast(s): Yes: WNL - Abdominal Exam/OB Fundal Height: 40 Number of Fetuses: Single Presentation: Vertex Contractions: Yes Regularity: Regular Intensity: Moderate Monitor Mode: External Heart Rate (range): 150 Heart Rate Location: [facility] Category: I Accelerations: Uniform Decelerations: None - Vaginal Exam/OB Vaginal Bleeding: No Speculum Exam: No Dilatation (cm): 4 Effacement (%): 60 Amniotic Membrane Status: Ruptured Amniotic Fluid: Yes: Clear Presentation: Vertex/Position Station: -2 - Physical Exam Musculoskeletal: Yes: WNL Extremities: Yes: WNL Edema: Yes Integumentary: Yes: WNL Deep Tendon Reflex Grade: Normal +2 ...Motor Strength: WNL Psychiatric: Yes: WNL, Alert, Oriented - Labs Lab Results: CBC, BMP 08/17/20 00:35 08/17/20 00:35 Hemorrhage Risk Assessment - Risk Factors Medium Risk Factors: Yes: None High Risk Factors: Yes: None Risk Score: 1 Risk Level: Medium Risk Assessment/Plan for laboring, asking for epidural
--- NOTE | 2020-08-17 07:33 | PN ---
Progress Note (short form) - Note Progress Note: 7 am, cat 1 nst, uc q 5 min, 9 cm, -1, ready to push soon
[2020-08-17 09:27] LABS: POC NITRAZINE POS
[2020-08-17] MEDS ORDERED: METHYLERGONOVINE MALEATE 0.2 MG/1 ML AMP IM PRN (09:28)
[2020-08-17] MEDS ORDERED: BENZOCAINE 20% 57 GM BOTTLE TP PRN (09:28)
[2020-08-17] MEDS ORDERED: WITCH HAZEL 50% (TUCKS) 40 PAD/JAR PAD TP PRN (09:28)
[2020-08-17] MEDS ORDERED: BISACODYL 10 MG SUPP.RECT RC PRN (09:28)
[2020-08-17] MEDS ORDERED: oxyCODONE HCL 5 MG TABLET PO PRN (09:28)
[2020-08-17] MEDS ORDERED: BENZOCAINE 28 GM HEMORRHOIDAL OINTMENT TP PRN (09:28)
[2020-08-17] MEDS ORDERED: OXYTOCIN 20 UNITS in 0.9% NS 20 UNIT/1,000 ML INFUS.BAG IV SCH (09:30)
--- NOTE | 2020-08-17 09:34 | PN ---
Delivery - Delivery Vaginal Delivery: No Problems Type of Anesthesia: Epidural Episiotomy/Laceration: 1st degree EBL (cc): 200 Delivery, Single - Feeding Plan Initial Plan: Elected not to breastfeed exclusively throughout hospitalization
[2020-08-17] MEDS: IBUPROFEN 600 MG TABLET (FP) PO PRN ×2 (11:47→17:13)
[2020-08-17] MEDS: ACETAMINOPHEN 325 MG TABLET (FP) PO PRN ×2 (11:48→17:14)
[2020-08-17] MEDS: PRENATAL VITAMINS W/ FOLIC ACID TABLET (FP) PO SCH (11:48)
[2020-08-18] MEDS: IBUPROFEN 600 MG TABLET (FP) PO PRN (06:11)
[2020-08-18] MEDS: ACETAMINOPHEN 325 MG TABLET (FP) PO PRN (06:11)
[2020-08-18 07:18] LABS: BASO % 0.8 % (0-2.0); EOS % 1.7 % (0-4.5); HEMATOCRIT 32.2 % (32.4-45.2); HEMOGLOBIN 10.7 GM/dL (10.7-15.3); LYMPH % 19.4 % (8-40); MCH 27.8 pg (25.7-33.7); MCHC 33.1 g/dl (32.0-36.0); MEAN PLT VOLUME 8.1 fl (7.5-11.1); MONO % 6.7 % (3.8-10.2); NEUT % 71.4 % (42.8-82.8); PLATELET COUNT 179 K/MM3 (134-434); RBC 3.83 M/mm3 (3.60-5.2); RDW 14.8 % (11.6-15.6)
[2020-08-18] MEDS: PRENATAL VITAMINS W/ FOLIC ACID TABLET (FP) PO SCH (09:06)
--- NOTE | 2020-08-18 09:42 | PN ---
Post Progress Note Post Day: 1 Type of Delivery: Vital Signs: Vital Signs Temperature 98.2 F 08/18/20 06:00 Pulse Rate 73 08/18/20 06:00 Respiratory Rate 18 08/18/20 06:00 Blood Pressure 118/73 08/18/20 06:00 O2 Sat by Pulse Oximetry (%) 98 08/17/20 22:00 Breast Exam: Yes: Soft Uterus: Yes: Fundus Firm, Fundus below umbilicus, Non-tender Abdomen/GI: Yes: Abdomen soft, Tolerating PO Lochia: Yes: Serosa Lochia, amount: Small Extremities: Yes: Calves non-tender Perineum: Yes: Intact Activity: Ambulating - Labs Labs: CBC WBC 9.0 K/mm3 (4.0-10.0) 08/18/20 06:45 RBC 3.83 M/mm3 (3.60-5.2) 08/18/20 06:45 Hgb 10.7 GM/dL (10.7-15.3) 08/18/20 06:45 Hct 32.2 % (32.4-45.2) L 08/18/20 06:45 MCV 84.0 fl (80-96) 08/18/20 06:45 MCH 27.8 pg (25.7-33.7) 08/18/20 06:45 MCHC 33.1 g/dl (32.0-36.0) 08/18/20 06:45 RDW 14.8 % (11.6-15.6) 08/18/20 06:45 Plt Count 179 K/MM3 (134-434) D 08/18/20 06:45 MPV 8.1 fl (7.5-11.1) 08/18/20 06:45 Absolute Neuts (auto) 6.4 K/mm3 (1.5-8.0) 08/18/20 06:45 Neutrophils % 71.4 % (42.8-82.8) 08/18/20 06:45 Lymphocytes % 19.4 % (8-40) 08/18/20 06:45 Monocytes % 6.7 % (3.8-10.2) 08/18/20 06:45 Eosinophils % 1.7 % (0-4.5) D 08/18/20 06:45 Basophils % 0.8 % (0-2.0) 08/18/20 06:45 Nucleated RBC % 0 % (0-0) 08/18/20 06:45
--- NOTE | 2020-08-18 10:29 | DS ---
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 Vital Signs: Vital Signs Temperature 98.2 F 08/18/20 06:00 Pulse Rate 73 08/18/20 06:00 Respiratory Rate 18 08/18/20 06:00 Blood Pressure 118/73 08/18/20 06:00 O2 Sat by Pulse Oximetry (%) 98 08/17/20 22:00 Constitutional: Yes: Well Nourished, No Distress, Calm Eyes: Yes: WNL, Conjunctiva Clear, EOM Intact HENT: Yes: WNL, Atraumatic, Normocephalic Neck: Yes: WNL, Supple, Trachea Midline Cardiovascular: Yes: WNL, Regular Rate and Rhythm Respiratory: Yes: WNL, Regular, CTA Bilaterally Gastrointestinal: Yes: WNL, Normal Bowel Sounds, Soft ...Rectal Exam: Yes: WNL Renal/: Yes: WNL Pelvis: Yes: WNL External Genitalia: Yes: Normal Internal Exam Deferred: No Vaginal Exam: Yes: Normal Cervix: Yes: Normal Uterus: Yes: Normal Adnexa: Normal: Bilateral ....Post : Yes: Uterus firm, Uterus non-tender Breast(s): Yes: WNL Musculoskeletal: Yes: WNL Extremities: Yes: WNL Integumentary: Yes: WNL Wound/Incision: Yes: Clean/Dry, Well Approximated Neurological: Yes: WNL, Alert, Oriented ...Motor Strength: WNL Psychiatric: Yes: WNL, Alert, Oriented Labs: CBC, BMP 08/18/20 06:45 08/17/20 00:35 Delivery - Delivery Vaginal Delivery: No Problems Type of Anesthesia: Epidural Episiotomy/Laceration: 1st degree EBL (cc): 200 Delivery, Single - Stages of Labor Date 1st Stage Initiatied: 08/16/20 Time 1st Stage Initiated: 21:30 Date 2nd Stage Initiated: 08/17/20 Time 2nd Stage Initiated: 08:37 Date of Delivery: 08/17/20 Time of Delivery: 09:13 Time Placenta Delivered: 09:18 - Condition of Infant Assistant Offset Press Operator/Staple Side Laster Present: No Infant Gender: Female Weight: 3.515 kg Position: Right, OA Total Hours ROM (Hrs/Mins): 23hrs 48min - 1 Minute Total Score: 9 5 Minutes Total Score: 9 - Feeding Plan Initial Plan: Elected not to breastfeed exclusively throughout hospitalization Discharge Summary Problems reviewed: Yes Reason For Visit: LABOR Procedures: Principal: Other Procedures: none Condition: Good - Instructions Referrals: Danika Honeycutt [Primary Care Provider] - Disposition: HOME - Home Medications Comprehensive Discharge Medication List: Ambulatory Orders Ferrous Sulfate [Iron] 1 tab PO DAILY 08/17/20 Pnv 29-1 Tablet 1 tab PO DAILY 08/17/20 Prescription Drug Monitoring Program (I-STOP) results: I-STOP reviewed and no issues identified
[2020-08-18] MEDS ORDERED: FLU VACCINE (FLULAVAL) PF 60 MCG/0.5 ML SYRINGE 2020-2021 IM ONE (11:15)
[2020-08-18 15:47] VITALS: BP 113/75; PULSE 79; TEMP 98.6
[2020-08-18] MEDS ORDERED: SENNOSIDES/DOCUSATE COMBO (SENNA PLUS) TABLET (UD) PO PRN (22:00)
== END 2020-08-18 15:10 | disposition home or self-care (01) | DRG 807 ==
LOC: JDEL → JLDR 00:25 → J3W 11:41
PROVIDERS: ADMIT Obstetrics & Gynecology; ATTEND Obstetrics & Gynecology
PROC: 10E0XZZ Delivery of Products of Conception, External Approach (ICD-10-PCS; principal; 2020-08-17)
DX: O70.0 First degree perineal laceration during delivery (principal); Z37.0 Single live birth; Z3A.39 39 weeks gestation of pregnancy
CPT/HCPCS: 36415; 59409; 80048; 83986-QW; 85025; 85610; 85730; 86780; 86850; 86900; 86901; 87389; G0008; Q2036; U0003

== ENCOUNTER 2022-07-04 16:30 | Emergency (ER) | payer BC, OTHER ==
[2022-07-04 16:58] VITALS: BP 132/84; PULSE 82; RESP 16; TEMP 98.2; BMI 30.8
[2022-07-04 18:07] LABS: EPI CELLS 4 /uL (0-25.1); HYALINE CASTS 0 /uL (0-3.1); URINE APPEARANCE CLEAR; URINE BACTERIA 34 /uL (0-1359); URINE BILIRUBIN NEGATIVE (NEGATIVE); URINE COLOR YELLOW; URINE GLUCOSE (UA) NEGATIVE (NEGATIVE); URINE KETONE TRACE (NEGATIVE); URINE LEUK ESTERASE TRACE (NEGATIVE); URINE NITRITE NEGATIVE (NEGATIVE); URINE PROTEIN NEGATIVE (NEGATIVE); URINE RBC 76 /uL (0-23.9); URINE WBC 53 /uL (0-25.8)
[2022-07-04 18:09] LABS: HCG,QUALITATIVE URINE Negative
[2022-07-04] MEDS ORDERED: IBUPROFEN 600 MG TABLET (FP) PO ONE ×2 (20:35)
== END 2022-07-04 21:26 | disposition home or self-care (01) ==
LOC: JER 16:30
DX: R35.0 Frequency of micturition (principal)
CPT/HCPCS: 74176-TC; 81003; 84703; 87086; 99284-25

== ENCOUNTER 2023-06-14 09:25 | Emergency (ER) | payer BC ==
[2023-06-14 09:56] VITALS: BP 102/74; PULSE 72; RESP 18; TEMP 98.3; BMI 27.4
== END 2023-06-14 10:16 | disposition home or self-care (01) ==
LOC: JERFT 09:25
DX: L08.9 Local infection of the skin and subcutaneous tissue, unspecified (principal); T78.40XA Allergy, unspecified, initial encounter
CPT/HCPCS: 99282-25

== ENCOUNTER 2024-02-28 07:15 | Inpatient (IN) | payer BC ==
[2024-02-28 08:21] LABS: EOS % 1.4 % (0-4.5); HEMOGLOBIN 11.7 GM/dL (10.7-15.3); LYMPH % 16.2 % (8-40); MCH 27.4 pg (25.7-33.7); MCHC 32.5 g/dl (32.0-36.0); MEAN CELL VOLUME 84.2 fl (80-96); MEAN PLT VOLUME 7.7 fl (7.5-11.1); MONO % 9.1 % (3.8-10.2); NEUT % 72.3 % (42.8-82.8); PLATELET COUNT 213 10^3/uL (134-434); RBC 4.28 M/mm3 (3.60-5.2); RDW 16.5 % (11.6-15.6); WHITE BLOOD COUNT 7.6 K/mm3 (4.0-10.0)
[2024-02-28 08:28] LABS: INR 1.01 (0.83-1.09); PROTHROMBIN TIME (PATIENT) 11.7 SEC (9.7-13.0)
[2024-02-28 08:31] LABS: ACTIVATED PTT 26.7 SECONDS (25.2-36.5)
[2024-02-28 08:43] LABS: CALCIUM 8.9 mg/dL (8.5-10.1); POTASSIUM 3.8 mmol/L (3.5-5.1)
[2024-02-28 08:47] LABS: CREATININE 0.5 mg/dL (0.55-1.3)
[2024-02-28] MEDS: ELECTROLYTE-148 SOLN 1,000 ML IV SCH (09:00)
[2024-02-28 09:38] VITALS: BMI 32.9
[2024-02-28] MEDS ORDERED: OXYTOCIN 30 UNITS in 0.9% NS 30 UNIT/500 ML INFUS.BAG IVPB ONE (09:38)
[2024-02-28] MEDS: OXYTOCIN 30 UNITS in 0.9% NS 30 UNIT/500 ML INFUS.BAG IVPB SCH (09:45)
[2024-02-28] MEDS ORDERED: FENTANYL/BUPIVACAINE/NS/PF - PCEA - 50 ML DISP.SYRIN EP ONE ×2 (13:39→17:59)
[2024-02-28 14:01] LABS: HIV INTERPRETATION NEGATIVE (NEGATIVE)
[2024-02-28] MEDS: FENTANYL/BUPIVACAINE/NS/PF - PCEA - 50 ML DISP.SYRIN EP SCH (14:05)
[2024-02-28] MEDS ORDERED: NALOXONE HCL 0.4 MG/ML VIAL IVPUSH PRN (14:43)
[2024-02-28] MEDS ORDERED: OXYTOCIN 20 UNITS in 0.9% NS 20 UNIT/1,000 ML INFUS.BAG IV ONE (18:20)
[2024-02-28] MEDS: OXYTOCIN 20 UNITS in 0.9% NS 20 UNIT/1,000 ML INFUS.BAG IV SCH (19:44)
[2024-02-28] MEDS ORDERED: BISACODYL 10 MG SUPP.RECT RC PRN (19:59)
[2024-02-28] MEDS ORDERED: oxyCODONE HCL 5 MG TABLET PO PRN (19:59)
[2024-02-28] MEDS ORDERED: METHYLERGONOVINE MALEATE 0.2 MG/1 ML AMP IM PRN (19:59)
[2024-02-28 20:18] LABS: CORD BASE EXCESS -1.7 mmol/L (0-2); CORD HCO3 23.6 mmHg (20-29); CORD PCO2 42.2 mmHg (30-78); CORD pH 7.366 (7.14-7.44)
[2024-02-28 20:18] LABS: CORD BASE EXCESS -3.9 mmol/L (0-2); CORD HCO3 23.5 mmHg (20-29); CORD PCO2 51.5 mmHg (30-78); CORD pH 7.278 (7.14-7.44)
[2024-02-29] MEDS: BENZOCAINE 28 GM HEMORRHOIDAL OINTMENT TP PRN (00:53)
[2024-02-29] MEDS: WITCH HAZEL 50% (TUCKS) 40 PAD/JAR PAD TP PRN (00:53)
[2024-02-29] MEDS: BENZOCAINE 20% 57 GM BOTTLE TP PRN (00:54)
[2024-02-29 01:23] VITALS: RESP 18
[2024-02-29] MEDS: ACETAMINOPHEN 325 MG TABLET (FP) PO PRN (04:55)
[2024-02-29] MEDS: IBUPROFEN 600 MG TABLET (FP) PO PRN (07:22)
[2024-02-29 07:53] LABS: BASO % 0.4 % (0-2.0); EOS % 1.2 % (0-4.5); HEMATOCRIT 30.9 % (32.4-45.2); HEMOGLOBIN 10.6 GM/dL (10.7-15.3); LYMPH % 13.9 % (8-40); MCH 28.6 pg (25.7-33.7); MCHC 34.1 g/dl (32.0-36.0); MEAN CELL VOLUME 83.8 fl (80-96); MEAN PLT VOLUME 8.1 fl (7.5-11.1); MONO % 7.3 % (3.8-10.2); NEUT % 77.2 % (42.8-82.8); PLATELET COUNT 165 10^3/uL (134-434); RBC 3.69 M/mm3 (3.60-5.2); RDW 16.6 % (11.6-15.6); WHITE BLOOD COUNT 9.6 K/mm3 (4.0-10.0)
[2024-02-29] MEDS: PRENATAL VITAMINS W/ FOLIC ACID TABLET (FP) PO SCH (10:54)
[2024-02-29] MEDS ORDERED: SENNOSIDES/DOCUSATE COMBO (SENNA PLUS) TABLET (UD) PO PRN (22:00)
[2024-03-01 10:03] VITALS: BP 119/75; PULSE 70; TEMP 98.1
== END 2024-03-01 14:45 | disposition home or self-care (01) | DRG 807 ==
LOC: JLDR 07:15 → J3W 22:55
PROVIDERS: ADMIT Obstetrics & Gynecology; ATTEND Obstetrics & Gynecology
PROC: 10E0XZZ Delivery of Products of Conception, External Approach (ICD-10-PCS; principal; 2024-02-28)
DX: O80 Encounter for full-term uncomplicated delivery (principal); Z37.0 Single live birth; Z3A.39 39 weeks gestation of pregnancy
CPT/HCPCS: 36415; 36600; 80048; 82803; 85025; 85610; 85730; 86780; 86850; 86900; 86901; 87389